=== PATIENT | male | born 1960 | race Caucasian/White ===

== ENCOUNTER 2016-09-17 10:30 | Emergency (ER) | payer OTHER ==
[2016-09-17] MEDS ORDERED: Sodium Chloride 0.9% 10 ML Syringe FLUSH PRN (10:43)
[2016-09-17] MEDS ORDERED: Aspirin 81 MG Tab.Chew PO ONE (10:43)
--- NOTE | 2016-09-17 10:49 | EDM.PDOC ---
ED HISTORY OF PRESENT ILLNESS - General Chief Complaint: Chest Pain Stated Complaint: CHEST PAIN Time Seen by Provider: 09/17/16 10:39 Source of Information: Reports: Patient History Limitations: Reports: No limitations - History of Present Illness INITIAL COMMENTS - FREE TEXT/NARRATIVE: The patient presents with chest pain that started about an hour before his arrival. He was driving when this started. He says it is a pressure type of pain. He has some shortness of breath with it. He was not diaphoretic and he had no nausea, vomiting or abdominal pain. He has no fever, chills, or cough. He has no history of HTN, diabetes and he does not smoke. He had some chest pain about 12 years ago and he was found to have esophageal spasms. He has no pain or swelling in his legs. Timing/Duration: Reports: Hour(s): (1) Severity: mild Location, General: Reports: chest Quality: Reports: Pressure Improves with: Reports: None Worsens with: Reports: None Context, General: Reports: Activity (He was driving when this started) Associated Symptoms (General): Reports: chest pain. Denies: cough, fever/chills , nausea/vomiting, shortness of breath - Related Data Allergies/ADRs: Allergies Allergy/AdvReac Type Severity Reaction Status Date / Time No Known Allergies Allergy Verified 09/17/16 10:37 Home Meds: Home Meds . [No Known Home Meds] 09/17/16 [History] Past Medical History - Past Health History Medical/Surgical History: Denies Medical/Surgical History Social & Family History - Tobacco Use Years of Tobacco use: 30 Packs/Tins Daily: 0.3 - Caffeine Use Caffeine Use: Reports: Coffee, Soda - Recreational Drug Use Recreational Drug Use: No ED ROS GENERAL - Review of Systems Review Of Systems: See Below Constitutional: Reports: no symptoms HEENT: Reports: No symptoms Respiratory: Reports: Shortness of Breath Cardiovascular: Reports: Chest pain Endocrine: Reports: no symptoms GI/Abdominal: Reports: No symptoms : Reports: no symptoms Musculoskeletal: Reports: no symptoms Skin: Reports: no symptoms Neurological: Reports: No Symptoms ED EXAM, GENERAL - Physical Exam Exam: See Below Exam Limited By: No limitations General Appearance: alert, no apparent distress Ears: normal external exam Nose: normal inspection Head: atraumatic, normocephalic Neck: normal inspection Respiratory/Chest: no respiratory distress, lungs clear, normal breath sounds Cardiovascular: regular rate, rhythm, no edema, no murmur GI/Abdominal: soft, non tender, no organomegaly, no mass Back Exam: normal inspection Extremities: normal inspection EKG INTERPRETATION EKG Date: 09/17/16 Time: 10:37 Rhythm: NSR Rate (beats/min): 81 [place]: normal P-wave: present QRS: normal ST-T: normal QT: normal EKG Interpretation Comments: Sinus pause Course - Vital Signs Last Recorded V/S: Last Vital Signs Temp 96.7 F 09/17/16 10:34 Pulse 77 09/17/16 14:14 Resp 18 09/17/16 14:14 BP 133/86 09/17/16 14:14 Pulse Ox 99 09/17/16 14:14 - Orders/Labs/Meds Orders: Active Orders 24 hr Category Date Time Status Cardiac Monitoring [RC] . DIRECTED Care 09/17/16 10:43 Active EKG 12 Lead [EKG Documentation Completion] [RC] STAT Care 09/17/16 13:22 Active EKG Documentation Completion [RC] STAT Care 09/17/16 10:43 Active Oxygen Therapy [RC] PRN Care 09/17/16 10:43 Active Peripheral IV Care [RC] . DIRECTED Care 09/17/16 10:43 Active Chest 1V Frontal [CR] Stat Exams 09/17/16 10:43 Taken Sodium Chloride 0.9% [Saline Flush] Med 09/17/16 10:43 Active 10 ml FLUSH ASDIRECTED PRN Peripheral IV Insertion Adult [OM.PC] Stat Oth 09/17/16 10:43 Ordered Medication Orders Sodium Chloride (Saline Flush) 10 ml FLUSH ASDIRECTED PRN PRN Reason: Keep Vein Open Last Admin: 09/17/16 10:45 Dose: 10 ml Labs: Laboratory Tests 09/17/16 09/17/16 09/17/16 Range/Units 10:40 10:40 10:40 WBC 7.79 (4.23-9.07) K/mm3 RBC 4.99 (4.63-6.08) M/mm3 Hgb 14.8 (13.7-17.5) gm/L Hct 44.1 (40.1-51.0) % MCV 88.4 (79.0-92.2) fl MCH 29.7 (25.7-32.2) pg MCHC 33.6 (32.2-35.5) g/dl RDW Std Deviation 45.5 H (35.1-43.9) fL Plt Count 208 (163-337) K/mm3 MPV 10.2 (9.4-12.3) fl Neut % (Auto) 44.0 (34.0-67.9) % Lymph % (Auto) 35.0 (21.8-53.1) % [place] % (Auto) 17.7 H (5.3-12.2) % Eos % (Auto) 2.8 (0.8-7.0) Baso % (Auto) 0.4 (0.1-1.2) % Neut # (Auto) 3.42 (1.78-5.38) K/mm3 Lymph # (Auto) 2.73 (1.32-3.57) K/mm3 [place] # (Auto) 1.38 H (0.30-0.82) K/mm3 Eos # (Auto) 0.22 (0.04-0.54) K/mm3 Baso # (Auto) 0.03 (0.01-0.08) K/mm3 Manual Slide Review Normal smear D-Dimer, Quantitative < 0.19 L (0.19-0.59) mg/L Sodium 141 (136-145) mEq/L Potassium 4.1 (3.5-5.1) mEq/L Chloride 105 (98-107) mEq/L Carbon Dioxide 25 (21-32) mEq/L Anion Gap 15.1 H (5-15) BUN 23 H (7-18) mg/dL Creatinine 1.0 (0.7-1.3) mg/dL Est Cr Clr Drug Dosing 94.76 mL/min Estimated GFR (MDRD) > 60 (>60) mL/min BUN/Creatinine Ratio 23.0 H (14-18) Glucose 100 (74-106) mg/dL Calcium 8.9 (8.5-10.1) mg/dL Total Bilirubin 0.4 (0.2-1.0) mg/dL AST 16 (15-37) U/L ALT 35 (16-63) U/L Alkaline Phosphatase 101 (46-116) U/L Troponin I < 0.017 (0.00-0.056) ng/mL Total Protein 7.1 (6.4-8.2) g/dl Albumin 4.0 (3.4-5.0) g/dl Globulin 3.1 gm/dL Albumin/Globulin Ratio 1.3 (1-2) 09/17/16 Range/Units 13:30 WBC (4.23-9.07) K/mm3 RBC (4.63-6.08) M/mm3 Hgb (13.7-17.5) gm/L Hct (40.1-51.0) % MCV (79.0-92.2) fl MCH (25.7-32.2) pg MCHC (32.2-35.5) g/dl RDW Std Deviation (35.1-43.9) fL Plt Count (163-337) K/mm3 MPV (9.4-12.3) fl Neut % (Auto) (34.0-67.9) % Lymph % (Auto) (21.8-53.1) % [place] % (Auto) (5.3-12.2) % Eos % (Auto) (0.8-7.0) Baso % (Auto) (0.1-1.2) % Neut # (Auto) (1.78-5.38) K/mm3 Lymph # (Auto) (1.32-3.57) K/mm3 [place] # (Auto) (0.30-0.82) K/mm3 Eos # (Auto) (0.04-0.54) K/mm3 Baso # (Auto) (0.01-0.08) K/mm3 Manual Slide Review D-Dimer, Quantitative (0.19-0.59) mg/L Sodium (136-145) mEq/L Potassium (3.5-5.1) mEq/L Chloride (98-107) mEq/L Carbon Dioxide (21-32) mEq/L Anion Gap (5-15) BUN (7-18) mg/dL Creatinine (0.7-1.3) mg/dL Est Cr Clr Drug Dosing mL/min Estimated GFR (MDRD) (>60) mL/min BUN/Creatinine Ratio (14-18) Glucose (74-106) mg/dL Calcium (8.5-10.1) mg/dL Total Bilirubin (0.2-1.0) mg/dL AST (15-37) U/L ALT (16-63) U/L Alkaline Phosphatase (46-116) U/L Troponin I < 0.017 (0.00-0.056) ng/mL Total Protein (6.4-8.2) g/dl Albumin (3.4-5.0) g/dl Globulin gm/dL Albumin/Globulin Ratio (1-2) Meds: Medications Generic Name Dose Route Start Last Admin Trade Name Freq PRN Reason Stop Dose Admin Sodium Chloride 10 ml 09/17/16 10:43 09/17/16 10:45 Saline Flush FLUSH 10 ml ASDIRECTED PRN Administration Keep Vein Open Discontinued Medications Generic Name Dose Route Start Last Admin Trade Name Freq PRN Reason Stop Dose Admin Aspirin 324 mg 09/17/16 10:43 09/17/16 10:46 Aspirin PO 09/17/16 10:44 324 mg ONETIME ONE Administration Al Hydroxide/Mg Hydroxide 30 0 ml 09/17/16 14:05 09/17/16 14:10 ml/ Lidocaine HCl 15 ml PO 09/17/16 14:06 45 ml ONETIME ONE Administration - Re-Assessments/Exams Free Text/Narrative Re-Assessment/Exam: 09/17/16 10:49 I ordered an IV saline lock, O2 PRN, EKG, CXR and labs. His EKG shows a NSR with a sinus pause. I have also ordered aspirin. 09/17/16 11:30 The CBC was negative. His D-dimer was negative. His anion gap is elevated at 15.1. His BUN was elevated at 23. His troponin was negative. 09/17/16 14:29 His repeat troponin was negative. His repeat EKG was negative. I gave him a GI cocktail. I will discharge him home. Departure - Departure Time of Disposition: 14:35 Disposition: Home, Self-Care 01 Condition: good Clinical Impression: Atypical chest pain GERD (gastroesophageal reflux disease) Qualifiers: Esophagitis presence: with esophagitis Qualified Code(s): K21.0 - Gastro- esophageal reflux disease with esophagitis Referrals: Anthony Carranza [Physician] - 1 Week Forms: ED Department Discharge Additional Instructions: Take pepcid 20mg daily for 1 week. Please return if you are worse such as more chest pain, shortness of breath, if you are sweaty or if you do not feel right. Follow up with Dr Carranza this next week. - My Orders Last 24 Hours: My Active Orders 09/17/16 10:43 Cardiac Monitoring [RC] . DIRECTED EKG Documentation Completion [RC] STAT Oxygen Therapy [RC] PRN Peripheral IV Care [RC] . DIRECTED Chest 1V Frontal [CR] Stat Sodium Chloride 0.9% [Saline Flush] 10 ml FLUSH ASDIRECTED PRN Peripheral IV Insertion Adult [OM.PC] Stat 09/17/16 13:22 EKG 12 Lead [EKG Documentation Completion] [RC] STAT - Assessment/Plan Last 24 Hours: My Active Orders 09/17/16 10:43 Cardiac Monitoring [RC] . DIRECTED EKG Documentation Completion [RC] STAT Oxygen Therapy [RC] PRN Peripheral IV Care [RC] . DIRECTED Chest 1V Frontal [CR] Stat Sodium Chloride 0.9% [Saline Flush] 10 ml FLUSH ASDIRECTED PRN Peripheral IV Insertion Adult [OM.PC] Stat 09/17/16 13:22 EKG 12 Lead [EKG Documentation Completion] [RC] STAT
[2016-09-17] MEDS ORDERED: Alum Hydrox/Mag Hydrox/Simeth 30 ML, Lidocaine 2% 15 ML PO ONE ×2 (14:05)
[2016-09-17 14:15] VITALS: BP 133/86
--- NOTE | 2016-09-17 19:20 | CR ---
Chest: Portable view of the chest was obtained. Comparison: No previous study. Heart size is normal. Mild tortuosity of the thoracic aorta is seen. Lungs are clear with no acute infiltrates. Bony structures are grossly intact. Impression: 1. Nothing acute is identified on portable chest x-ray. Diagnostic code #1
== END 2016-09-17 14:35 | disposition home or self-care (01) ==
LOC: JD.ED 10:30
DX: R07.89 Other chest pain (principal); K21.0 Gastro-esophageal reflux disease with esophagitis; Z87.891 Personal history of nicotine dependence
CPT/HCPCS: 36415; 71010; 80053; 84484; 85025; 85379; 93005; 99285; A9270; J7050; 99284